=== PATIENT | male | born 1940 | race Caucasian/White ===

== ENCOUNTER 2021-06-28 14:19 | Inpatient (IN) | payer MEDICARE ==
[~2021-06-28] VITALS: Ht 152.4 cm; Wt 83.0 kg
[~2021-06-28 14:19] MED LIST: ATOR-2 MT; BUME1TAB8 MT; CLOP75TA33 MT; FERR-63 PO; MELA5TAB21 PO; MIDO5TAB4 MT; MULT-1204 MT; NITR0.4T49 SL; POTA20TA82 MT
[2021-06-28 15:22] LABS: HEMATOCRIT. 35.2 % (42.0-52.0); HEMOGLOBIN. 11.4 g/dL (14.0-18.0); MEAN CORPUSCULAR HEMOGLOBIN 29.2 pg (28.0-32.0); MEAN CORPUSCULAR VOLUME 90.3 fL (80.0-94.0); MEAN PLATELET VOLUME 10.5 fl (7.4-10.4); PLATELET 69 x1000/uL (130-400); RED BLOOD CELL COUNT 3.89 mill/uL (4.7-6.1); RED CELL DISTRIBUTION WIDTH 19.6 % (11.6-14.6)
[2021-06-28 15:32] LABS: CHLORIDE 98 mEq/L (98-107)
[2021-06-28 15:40] LABS: ETHANOL BLOOD < 10 mg/dL
[2021-06-28] MEDS ORDERED: SODIUM CHLORIDE 0.9% 1,000 ML IV ONE (16:45)
[2021-06-28] MEDS ORDERED: PIPERACILLIN/TAZ 3.375G PREMIX 50 ML IV NR (16:45)
[2021-06-28] MEDS ORDERED: VANCOMYCIN 1G PREMIX 200 ML IV NR (16:45)
[2021-06-28 17:39] LABS: PLATELET ESTIMATE DECREASED
[2021-06-28] MEDS ORDERED: ACETAMINOPHEN 650MG SUPP PR PRN ×2 (20:45)
[2021-06-28] MEDS ORDERED: IPRATROPIUM/ALBUTEROL 0.5-3(2.5)MG/3ML NEB HHN PRN (20:45)
[2021-06-28] MEDS ORDERED: CLONIDINE 0.1MG TABLET PO PRN (20:45)
[2021-06-28] MEDS ORDERED: ONDANSETRON HCL 4MG/2ML INJ IV PRN (20:45)
[2021-06-28] MEDS ORDERED: DOCUSATE SODIUM 100MG CAPSULE PO PRN (20:45)
[2021-06-28] MEDS ORDERED: GUAIFENESIN 200MG/10ML SUGAR FREE UDC PO PRN (20:45)
[2021-06-28] MEDS ORDERED: MAGNESIUM/ALUMINUM HYDROXIDE/SIMETHICONE 30ML UDC PO PRN (20:45)
[2021-06-28] MEDS ORDERED: ENOXAPARIN 40MG/0.4ML SYR SUBCUT SCH (20:45)
[2021-06-28 21:10] VITALS: BP 88/49
[2021-06-28 21:15] LABS: PHOSPHORUS 2.6 mg/dL (2.5-4.9)
[2021-06-28] MEDS: ENOXAPARIN 30MG/0.3ML SYR SUBCUT SCH (21:15)
[2021-06-28] MEDS ORDERED: BUME1TAB8 MT (22:29)
[2021-06-28] MEDS ORDERED: MIDO5TAB4 MT (22:29)
[2021-06-28] MEDS ORDERED: MELA5TAB19 MT (22:29)
[2021-06-28] MEDS ORDERED: CLOP75TA33 MT (22:29)
[2021-06-28] MEDS ORDERED: POTA20TA82 MT (22:29)
[2021-06-28] MEDS ORDERED: ATOR-2 MT (22:29)
[2021-06-28] MEDS ORDERED: LORAZEPAM 1MG TABLET PO PRN (22:30)
[2021-06-28] MEDS ORDERED: AZITHROMYCIN 250 MG TABLET PO SCH (23:00)
[2021-06-28] MEDS: MIDODRINE HCL 5MG TABLET PO SCH (23:17)
[2021-06-28] MEDS: DOXYCYCLINE HYCLATE 100MG CAPSULE PO SCH (23:47)
[2021-06-29] VITALS: BP_SYST 82; BP_SYST 88; BP_DIAS 48; BP_DIAS 49
[2021-06-29] MEDS ORDERED: MIDODRINE HCL 5MG TABLET PO SCH (01:15)
[2021-06-29 04:00] VITALS: BP 85/55
[2021-06-29 06:07] LABS: MEAN CORPUSCULAR HEMOGLOBIN 29.4 pg (28.0-32.0); MEAN CORPUSCULAR VOLUME 90.7 fL (80.0-94.0); PLATELET 55 x1000/uL (130-400); RED BLOOD CELL COUNT 3.75 mill/uL (4.7-6.1); RED CELL DISTRIBUTION WIDTH 19.8 % (11.6-14.6)
[2021-06-29 06:20] LABS: CHLORIDE 99 mEq/L (98-107)
[2021-06-29 06:30] LABS: INR 1.4; PARTIAL THROMBOPLASTIN TIME 35.3 sec (23.4-31.0); PROTHROMBIN TIME 15.1 sec (9.6-11.0)
[2021-06-29 06:33] LABS: CREATINE KINASE 41 IU/L (39-308); HDL CHOLESTEROL 40 mg/dL (40-59); LDL CHOLESTEROL 36 mg/dL (5-100); T4 FREE 1.06 ng/dL (0.76-1.46)
[2021-06-29 08:00] VITALS: BP 97/52
[2021-06-29] MEDS: DIAZEPAM 2 MG TABLET PO SCH ×2 (09:00→21:51)
[2021-06-29] MEDS: DOXYCYCLINE HYCLATE 100MG CAPSULE PO SCH ×2 (09:05→16:40)
[2021-06-29] MEDS: MIDODRINE HCL 5MG TABLET PO SCH ×2 (09:09→16:41)
[2021-06-29] MEDS ORDERED: MIDODRINE HCL 5MG TABLET PO NR (11:45)
[2021-06-29 12:00] VITALS: BP 84/53
[2021-06-29] MEDS ORDERED: MIDODRINE HCL 2.5MG TABLET PO SCH (13:00)
[2021-06-29] MEDS ORDERED: SODIUM CHLORIDE 0.9% 250 ML IV ONE (13:30)
[2021-06-29 14:07] LABS: NUCLEATED RED BLOOD CELLS 4 /100 WBC; PLATELET ESTIMATE DECREASED
[2021-06-29 16:00] VITALS: BP 90/60
[2021-06-29] MEDS: PANTOPRAZOLE SODIUM 40 MG/VIAL IV SCH (16:40)
[2021-06-29] MEDS: CEFEPIME 1,000 MG in DEXTROSE 5% WATER 50 ML IV SCH (16:47)
[2021-06-29 20:00] VITALS: BP 88/64
[2021-06-29] MEDS: ENOXAPARIN 30MG/0.3ML SYR SUBCUT SCH (21:52)
[2021-06-29] MEDS: ATORVASTATIN CALCIUM 40MG TABLET PO SCH (21:52)
[2021-06-30] VITALS: BP 88/42
[2021-06-30 04:00] VITALS: BP 97/48
[2021-06-30 06:11] LABS: HEMATOCRIT. 29.1 % (42.0-52.0); HEMOGLOBIN. 9.5 g/dL (14.0-18.0); MEAN CORPUSCULAR HEMOGLOBIN 29.5 pg (28.0-32.0); MEAN CORPUSCULAR VOLUME 90.3 fL (80.0-94.0); MEAN PLATELET VOLUME 10.2 fl (7.4-10.4); PLATELET 51 x1000/uL (130-400); RED BLOOD CELL COUNT 3.22 mill/uL (4.7-6.1); RED CELL DISTRIBUTION WIDTH 20.6 % (11.6-14.6)
[2021-06-30 07:44] LABS: PLATELET ESTIMATE MARKEDLY DECREASED
[2021-06-30 08:00] VITALS: BP 88/50
[2021-06-30] MEDS: PANTOPRAZOLE SODIUM 40 MG/VIAL IV SCH (08:25)
[2021-06-30] MEDS: DOXYCYCLINE HYCLATE 100MG CAPSULE PO SCH ×2 (08:25→17:45)
[2021-06-30] MEDS: MIDODRINE HCL 5MG TABLET PO SCH ×3 (08:26→17:45)
[2021-06-30] MEDS: DIAZEPAM 2 MG TABLET PO SCH (08:27)
[2021-06-30 12:00] VITALS: BP 103/52
[2021-06-30] MEDS ORDERED: SODIUM CHLORIDE 0.9% 250 ML IV ONE (12:30)
[2021-06-30] MEDS ORDERED: LIDOCAINE HCL 1% 20ML VIAL (Pyxis) INJ ONE (12:39)
[2021-06-30] MEDS ORDERED: SODIUM BICARBONATE 4% (2.4MEQ) 5ML VIAL IV ONE (12:40)
[2021-06-30 16:00] VITALS: BP 91/50
[2021-06-30] MEDS ORDERED: PANTOPRAZOLE SODIUM 40 MG/VIAL IV SCH (17:00)
[2021-06-30] MEDS: CEFEPIME 1,000 MG in DEXTROSE 5% WATER 50 ML IV SCH (17:45)
[2021-06-30 20:00] VITALS: BP 89/45
[2021-06-30] MEDS: ATORVASTATIN CALCIUM 40MG TABLET PO SCH (20:28)
[2021-07-01] VITALS: BP 93/42
[2021-07-01 04:00] VITALS: BP 96/44
[2021-07-01 06:27] LABS: HEMATOCRIT. 29.9 % (42.0-52.0); HEMOGLOBIN. 9.3 g/dL (14.0-18.0); MEAN CORPUSCULAR HEMOGLOBIN 28.7 pg (28.0-32.0); MEAN CORPUSCULAR VOLUME 92.5 fL (80.0-94.0); MEAN PLATELET VOLUME 9.7 fl (7.4-10.4); PLATELET 64 x1000/uL (130-400); RED BLOOD CELL COUNT 3.24 mill/uL (4.7-6.1); RED CELL DISTRIBUTION WIDTH 20.7 % (11.6-14.6)
[2021-07-01 08:00] VITALS: BP 95/44
[2021-07-01] MEDS: DOXYCYCLINE HYCLATE 100MG CAPSULE PO SCH ×2 (08:48→17:37)
[2021-07-01] MEDS: MIDODRINE HCL 5MG TABLET PO SCH ×3 (08:48→17:38)
[2021-07-01] MEDS: PANTOPRAZOLE SODIUM 40 MG/VIAL IV SCH (08:49)
[2021-07-01] MEDS: CARVEDILOL 3.125 MG TABLET PO SCH ×2 (09:00→20:33)
[2021-07-01 10:20] LABS: NUCLEATED RED BLOOD CELLS 1 /100 WBC; PLATELET ESTIMATE DECREASED
[2021-07-01 12:00] VITALS: BP 97/45
[2021-07-01] MEDS ORDERED: SODIUM BICARBONATE 4% (2.4MEQ) 5ML VIAL IV ONE (14:16)
[2021-07-01 16:00] VITALS: BP 83/42
[2021-07-01] MEDS: CEFEPIME 1,000 MG in DEXTROSE 5% WATER 50 ML IV SCH (17:38)
[2021-07-01 20:00] VITALS: BP 82/47
[2021-07-01] MEDS: ATORVASTATIN CALCIUM 40MG TABLET PO SCH (20:33)
[2021-07-01] MEDS ORDERED: MIDODRINE HCL 5MG TABLET PO SCH (21:15)
[2021-07-02] VITALS: BP 85/45
[2021-07-02 04:00] VITALS: BP 87/48
[2021-07-02 08:00] VITALS: BP_SYST 154; BP_SYST 86; BP_DIAS 42; BP_DIAS 78
[2021-07-02 08:19] LABS: HEMATOCRIT. 30.6 % (42.0-52.0); HEMOGLOBIN. 9.5 g/dL (14.0-18.0); MEAN CORPUSCULAR HEMOGLOBIN 29.6 pg (28.0-32.0); MEAN CORPUSCULAR VOLUME 94.8 fL (80.0-94.0); MEAN PLATELET VOLUME 9.6 fl (7.4-10.4); RED BLOOD CELL COUNT 3.23 mill/uL (4.7-6.1); RED CELL DISTRIBUTION WIDTH 20.2 % (11.6-14.6)
[2021-07-02 08:26] LABS: INR 1.4; PROTHROMBIN TIME 14.5 sec (9.6-11.0)
[2021-07-02 08:30] LABS: PLATELET 47 x1000/uL (130-400)
[2021-07-02] MEDS: MIDODRINE HCL 5MG TABLET PO SCH ×3 (08:59→18:27)
[2021-07-02] MEDS: DOXYCYCLINE HYCLATE 100MG CAPSULE PO SCH ×2 (08:59→18:26)
[2021-07-02] MEDS: PANTOPRAZOLE SODIUM 40 MG/VIAL IV SCH (08:59)
[2021-07-02] MEDS: CARVEDILOL 3.125 MG TABLET PO SCH ×2 (09:00→21:41)
[2021-07-02 09:12] LABS: PLATELET ESTIMATE MARKEDLY DECREASED
[2021-07-02 12:00] VITALS: BP 81/37
[2021-07-02] MEDS: LACTULOSE 20G/30ML UDC PO SCH ×3 (12:30→21:41)
[2021-07-02 14:46] LABS: HEPATITIS B SURFACE ANTIGEN NEGATIVE
[2021-07-02 16:00] VITALS: BP_SYST 92; BP_SYST 95; BP_DIAS 44; BP_DIAS 48
[2021-07-02] MEDS: CEFEPIME 1,000 MG in DEXTROSE 5% WATER 50 ML IV SCH (18:25)
[2021-07-02 20:00] VITALS: BP 102/51
[2021-07-02] MEDS: ATORVASTATIN CALCIUM 40MG TABLET PO SCH (21:41)
[2021-07-03] VITALS: BP 92/44
[2021-07-03 04:00] VITALS: BP 91/40
[2021-07-03 08:00] VITALS: BP 94/40
[2021-07-03] MEDS: CARVEDILOL 3.125 MG TABLET PO SCH ×2 (09:00→21:00)
[2021-07-03] MEDS: DOXYCYCLINE HYCLATE 100MG CAPSULE PO SCH ×2 (11:02→18:02)
[2021-07-03] MEDS: MIDODRINE HCL 5MG TABLET PO SCH ×3 (11:02→18:01)
[2021-07-03] MEDS: PANTOPRAZOLE SODIUM 40 MG/VIAL IV SCH (11:03)
[2021-07-03 12:00] VITALS: BP 100/52
[2021-07-03] MEDS ORDERED: IOHEXOL-300 50 ML BOTTLE IV ONE (12:11)
[2021-07-03] MEDS ORDERED: IOPAMIDOL 10 ML VIAL IT ONE (12:12)
[2021-07-03] MEDS ORDERED: IOHEXOL-350 100 ML BOTTLE ONE (12:55)
[2021-07-03 16:00] VITALS: BP 106/53
[2021-07-03] MEDS: CEFEPIME 1,000 MG in DEXTROSE 5% WATER 50 ML IV SCH (18:02)
[2021-07-03 20:00] VITALS: BP 95/55
[2021-07-03] MEDS: ATORVASTATIN CALCIUM 40MG TABLET PO SCH (21:47)
[2021-07-04] VITALS (7 sets, daily range): BP systolic 93–110; BP diastolic 43–58
[2021-07-04] MEDS: CARVEDILOL 3.125 MG TABLET PO SCH ×2 (09:00→20:49)
[2021-07-04] MEDS: MIDODRINE HCL 5MG TABLET PO SCH ×3 (09:03→21:27)
[2021-07-04] MEDS: PANTOPRAZOLE SODIUM 40 MG/VIAL IV SCH (09:03)
[2021-07-04 15:50] LABS: HEMATOCRIT. 29.5 % (42.0-52.0); HEMOGLOBIN. 9.5 g/dL (14.0-18.0); MEAN CORPUSCULAR VOLUME 90.3 fL (80.0-94.0); MEAN PLATELET VOLUME 10.5 fl (7.4-10.4); PLATELET 53 x1000/uL (130-400); RED BLOOD CELL COUNT 3.27 mill/uL (4.7-6.1); RED CELL DISTRIBUTION WIDTH 20.3 % (11.6-14.6)
[2021-07-04 16:07] LABS: CHLORIDE 104 mEq/L (98-107)
[2021-07-04 16:25] LABS: PLATELET ESTIMATE DECREASED
[2021-07-04 16:37] LABS: TOTAL IRON BINDING CAPACITY 335 ug/dL (250-450)
[2021-07-04] MEDS: ATORVASTATIN CALCIUM 40MG TABLET PO SCH (21:27)
== END 2021-07-04 23:08 | DRG 853 ==
LOC: ER 14:19 → EDBEDREQTM 18:09 → EDBEDREQ 18:09 → 8WST 19:08 → EDBEDREQ 19:17 → EDBEDREQTM 19:17 → ENRESERV 19:50
PROVIDERS: ADMIT Family Medicine Adult Medicine; ATTEND Internal Medicine Nephrology
PROC: 5A1D70Z Performance of Urinary Filtration, Intermittent, Less than 6 Hours Per Day (ICD-10-PCS; 2021-06-29)
PROC: 4B02XTZ Measurement of Cardiac Defibrillator, External Approach (ICD-10-PCS; 2021-06-30)
PROC: 0W9G3ZZ Drainage of Peritoneal Cavity, Percutaneous Approach (ICD-10-PCS; 2021-06-30)
PROC: 0JBP0ZZ Excision of Left Lower Leg Subcutaneous Tissue and Fascia, Open Approach (ICD-10-PCS; principal; 2021-07-01)
PROC: 0JBP0ZZ Excision of Left Lower Leg Subcutaneous Tissue and Fascia, Open Approach (ICD-10-PCS; 2021-07-01)
PROC: 5A1D70Z Performance of Urinary Filtration, Intermittent, Less than 6 Hours Per Day (ICD-10-PCS; 2021-07-01)
PROC: 0W993ZZ Drainage of Right Pleural Cavity, Percutaneous Approach (ICD-10-PCS; 2021-07-01)
PROC: 5A1D70Z Performance of Urinary Filtration, Intermittent, Less than 6 Hours Per Day (ICD-10-PCS; 2021-07-03)
PROC: 05HY33Z Insertion of Infusion Device into Upper Vein, Percutaneous Approach (ICD-10-PCS; 2021-07-03)
PROC: B5171ZA Fluoroscopy of Left Subclavian Vein using Low Osmolar Contrast, Guidance (ICD-10-PCS; 2021-07-03)
PROC: B51NZZA Fluoroscopy of Left Upper Extremity Veins, Guidance (ICD-10-PCS; 2021-07-03)
DX: A41.9 Sepsis, unspecified organism (principal); J18.9 Pneumonia, unspecified organism; N18.6 End stage renal disease; I50.23 Acute on chronic systolic (congestive) heart failure; J96.00 Acute respiratory failure, unspecified whether with hypoxia or hypercapnia; I21.4 Non-ST elevation (NSTEMI) myocardial infarction; I13.2 Hypertensive heart and chronic kidney disease with heart failure and with stage 5 chronic kidney disease, or end stage renal disease; R18.8 Other ascites; E87.1 Hypo-osmolality and hyponatremia; E44.0 Moderate protein-calorie malnutrition; I47.2 Ventricular tachycardia; J91.8 Pleural effusion in other conditions classified elsewhere; I95.89 Other hypotension; R65.20 Severe sepsis without septic shock; E11.22 Type 2 diabetes mellitus with diabetic chronic kidney disease; E11.51 Type 2 diabetes mellitus with diabetic peripheral angiopathy without gangrene; E78.00 Pure hypercholesterolemia, unspecified; I25.5 Ischemic cardiomyopathy; K74.60 Unspecified cirrhosis of liver; E78.5 Hyperlipidemia, unspecified; D69.6 Thrombocytopenia, unspecified; D64.9 Anemia, unspecified; I08.0 Rheumatic disorders of both mitral and aortic valves; E11.42 Type 2 diabetes mellitus with diabetic polyneuropathy; R19.7 Diarrhea, unspecified; L89.156 Pressure-induced deep tissue damage of sacral region; R26.9 Unspecified abnormalities of gait and mobility; R53.81 Other malaise; I25.10 Atherosclerotic heart disease of native coronary artery without angina pectoris; F41.9 Anxiety disorder, unspecified; S80.922A Unspecified superficial injury of left lower leg, initial encounter; Z20.822 Contact with and (suspected) exposure to COVID-19; X58.XXXA Exposure to other specified factors, initial encounter; Y93.89 Activity, other specified; Y92.89 Other specified places as the place of occurrence of the external cause; Y99.8 Other external cause status; I25.2 Old myocardial infarction; Z86.16 Personal history of COVID-19; Z79.899 Other long term (current) drug therapy; Z95.810 Presence of automatic (implantable) cardiac defibrillator; Z99.2 Dependence on renal dialysis; Z87.891 Personal history of nicotine dependence; Z82.49 Family history of ischemic heart disease and other diseases of the circulatory system; Z83.3 Family history of diabetes mellitus; Z68.35 Body mass index [BMI] 35.0-35.9, adult; Z79.02 Long term (current) use of antithrombotics/antiplatelets; Z89.422 Acquired absence of other left toe(s)
CPT/HCPCS: 32555; 36415; 36573; 49083; 71045; 72191; 73706; 74176; 80048; 80053; 80061; 80320; 82040; 82140; 82306; 82550; 82607; 82728; 82746; 82962; 83036; 83540; 83550; 83605; 83615; 83735; 83880; 84100; 84134; 84145; 84439; 84443; 84484; 85025; 86705; 86709; 86803; 87340; 87426; 88108; 93005; 93306; 93971; 97162; 97166; 99291; C1725; C1769; C9113; C9803; J0692; J1650; J2543; J3370; J3490; J7060; Q9966; Q9967; G0480

== ENCOUNTER 2021-07-04 23:09 | Inpatient (IN) | payer MEDICARE ==
[~2021-07-04] VITALS: Ht 165.1 cm; Wt 89.8 kg
[2021-07-04 23:09] VITALS: BP 103/62
[~2021-07-04 23:09] MED LIST changes: +MELA5TAB19 MT; +POTA-205 MT; -POTA20TA82 MT
[2021-07-05] MEDS ORDERED: GUAIFENESIN 200MG/10ML SUGAR FREE UDC PO PRN (00:15)
[2021-07-05] MEDS ORDERED: MAGNESIUM/ALUMINUM HYDROXIDE/SIMETHICONE 30ML UDC PO PRN (00:15)
[2021-07-05] MEDS ORDERED: CLONIDINE 0.1MG TABLET PO PRN (00:15)
[2021-07-05] MEDS ORDERED: ACETAMINOPHEN 650MG SUPP PR PRN ×2 (00:15)
[2021-07-05] MEDS ORDERED: ONDANSETRON HCL 4MG/2ML INJ IV PRN (00:15)
[2021-07-05] MEDS: MIDODRINE HCL 2.5MG TABLET PO SCH ×3 (06:55→21:23)
[2021-07-05 08:00] VITALS: BP 113/59
[2021-07-05] MEDS: CARVEDILOL 3.125 MG TABLET PO SCH ×2 (09:00→21:00)
[2021-07-05] MEDS: PANTOPRAZOLE SODIUM 40 MG/VIAL IV SCH (11:39)
[2021-07-05 16:00] VITALS: BP 124/64
[2021-07-05 20:00] VITALS: BP 101/56
[2021-07-05] MEDS: ATORVASTATIN CALCIUM 40MG TABLET PO SCH (21:23)
[2021-07-06] MEDS: MIDODRINE HCL 2.5MG TABLET PO SCH ×3 (05:52→20:59)
[2021-07-06 08:00] VITALS: BP 109/54
[2021-07-06] MEDS ORDERED: SENNOSIDES/DOCUSATE SOD 8.6/50MG TABLET PO PRN (09:15)
[2021-07-06] MEDS: CARVEDILOL 3.125 MG TABLET PO SCH ×2 (09:53→10:03)
[2021-07-06] MEDS: PANTOPRAZOLE SODIUM 40 MG/VIAL IV SCH (09:53)
[2021-07-06] MEDS: LACTULOSE 20G/30ML UDC PO SCH ×3 (12:33→18:27)
[2021-07-06 20:00] VITALS: BP 122/55
[2021-07-06] MEDS: ATORVASTATIN CALCIUM 40MG TABLET PO SCH (20:59)
[2021-07-07] MEDS: IPRATROPIUM/ALBUTEROL 0.5-3(2.5)MG/3ML NEB HHN SCH ×4 (02:44→21:39)
[2021-07-07] MEDS: MIDODRINE HCL 2.5MG TABLET PO SCH ×3 (06:56→20:52)
[2021-07-07 08:00] VITALS: BP 100/51
[2021-07-07] MEDS: PANTOPRAZOLE SODIUM 40 MG/VIAL IV SCH (08:14)
[2021-07-07] MEDS: CARVEDILOL 3.125 MG TABLET PO SCH ×3 (08:16→21:00)
[2021-07-07 09:18] LABS: CHLORIDE 107 mEq/L (98-107)
[2021-07-07 09:29] LABS: HEMATOCRIT. 31.3 % (42.0-52.0); HEMOGLOBIN. 10.1 g/dL (14.0-18.0); MEAN CORPUSCULAR HEMOGLOBIN 29.2 pg (28.0-32.0); MEAN CORPUSCULAR VOLUME 90.1 fL (80.0-94.0); MEAN PLATELET VOLUME 10.4 fl (7.4-10.4); PLATELET 72 x1000/uL (130-400); RED BLOOD CELL COUNT 3.47 mill/uL (4.7-6.1); RED CELL DISTRIBUTION WIDTH 19.9 % (11.6-14.6)
[2021-07-07 20:00] VITALS: BP 100/64
[2021-07-07] MEDS: GABAPENTIN 100MG CAPSULE PO SCH (20:51)
[2021-07-07] MEDS: ATORVASTATIN CALCIUM 40MG TABLET PO SCH (20:51)
[2021-07-07 23:02] LABS: PLATELET ESTIMATE DECREASED
[2021-07-07 23:17] VITALS: BP 100/64
[2021-07-08] MEDS: MIDODRINE HCL 2.5MG TABLET PO SCH ×3 (06:18→20:56)
[2021-07-08] MEDS: IPRATROPIUM/ALBUTEROL 0.5-3(2.5)MG/3ML NEB HHN SCH ×3 (07:11→21:36)
[2021-07-08 08:00] VITALS: BP 95/44
[2021-07-08] MEDS: CARVEDILOL 3.125 MG TABLET PO SCH ×2 (09:00→20:59)
[2021-07-08] MEDS ORDERED: NALOXONE HCL 0.4MG/ML VIAL IV PRN (09:00)
[2021-07-08] MEDS: PANTOPRAZOLE SODIUM 40 MG/VIAL IV SCH (09:15)
[2021-07-08] MEDS: HYDROCODONE/ACETAMINOPHEN 5/325MG TABLET PO PRN (09:18)
[2021-07-08 20:00] VITALS: BP 103/57
[2021-07-08] MEDS: ATORVASTATIN CALCIUM 40MG TABLET PO SCH (20:56)
[2021-07-08] MEDS: GABAPENTIN 100MG CAPSULE PO SCH (20:56)
[2021-07-09] MEDS: IPRATROPIUM/ALBUTEROL 0.5-3(2.5)MG/3ML NEB HHN SCH ×4 (01:25→22:24)
[2021-07-09] MEDS: MIDODRINE HCL 2.5MG TABLET PO SCH ×3 (05:03→21:09)
[2021-07-09 07:06] LABS: HEMATOCRIT. 32.2 % (42.0-52.0); HEMOGLOBIN. 10.2 g/dL (14.0-18.0); MEAN CORPUSCULAR HEMOGLOBIN 28.8 pg (28.0-32.0); MEAN CORPUSCULAR VOLUME 90.7 fL (80.0-94.0); MEAN PLATELET VOLUME 10.2 fl (7.4-10.4); PLATELET 69 x1000/uL (130-400); RED BLOOD CELL COUNT 3.55 mill/uL (4.7-6.1); RED CELL DISTRIBUTION WIDTH 19.7 % (11.6-14.6)
[2021-07-09 08:00] VITALS: BP 104/53
[2021-07-09] MEDS: CARVEDILOL 3.125 MG TABLET PO SCH ×2 (08:45→21:00)
[2021-07-09] MEDS: PANTOPRAZOLE SODIUM 40 MG/VIAL IV SCH (09:55)
[2021-07-09] MEDS: HYDROCODONE/ACETAMINOPHEN 5/325MG TABLET PO PRN (10:52)
[2021-07-09 16:15] LABS: NUCLEATED RED BLOOD CELLS 1 /100 WBC; PLATELET ESTIMATE DECREASED
[2021-07-09 20:00] VITALS: BP 95/45
[2021-07-09] MEDS: ATORVASTATIN CALCIUM 40MG TABLET PO SCH (21:09)
[2021-07-09] MEDS: GABAPENTIN 100MG CAPSULE PO SCH (21:09)
[2021-07-10] MEDS: IPRATROPIUM/ALBUTEROL 0.5-3(2.5)MG/3ML NEB HHN SCH ×4 (02:20→19:51)
[2021-07-10] MEDS: MIDODRINE HCL 2.5MG TABLET PO SCH ×3 (05:55→21:27)
[2021-07-10 08:00] VITALS: BP 90/48
[2021-07-10] MEDS: CARVEDILOL 3.125 MG TABLET PO SCH ×2 (09:00→20:43)
[2021-07-10] MEDS: PANTOPRAZOLE 40MG DR TABLET PO SCH (10:12)
[2021-07-10 20:00] VITALS: BP 97/49
[2021-07-10] MEDS: ATORVASTATIN CALCIUM 40MG TABLET PO SCH (20:42)
[2021-07-10] MEDS: BISACODYL 10MG SUPP PR PRN (20:42)
[2021-07-10] MEDS: GABAPENTIN 100MG CAPSULE PO SCH (20:42)
[2021-07-11] MEDS: IPRATROPIUM/ALBUTEROL 0.5-3(2.5)MG/3ML NEB HHN SCH ×3 (01:23→18:00)
[2021-07-11] MEDS: MIDODRINE HCL 2.5MG TABLET PO SCH ×3 (05:32→22:00)
[2021-07-11] MEDS: IPRATROPIUM/ALBUTEROL 0.5-3(2.5)MG/3ML NEB HHN PRN ×2 (07:28→18:01)
[2021-07-11 08:00] VITALS: BP 101/51
[2021-07-11] MEDS: CARVEDILOL 3.125 MG TABLET PO SCH ×2 (08:46→21:00)
[2021-07-11] MEDS: PANTOPRAZOLE 40MG DR TABLET PO SCH (08:59)
[2021-07-11] MEDS ORDERED: LIDOCAINE HCL 1% 20ML VIAL (Pyxis) INJ INL NR (13:30)
[2021-07-11 20:00] VITALS: BP 107/50
[2021-07-11] MEDS: ATORVASTATIN CALCIUM 40MG TABLET PO SCH (21:00)
[2021-07-11] MEDS: GABAPENTIN 100MG CAPSULE PO SCH (21:00)
[2021-07-11 23:00] VITALS: BP 91/50
[2021-07-12 07:09] LABS: HEMOGLOBIN. 10.9 g/dL (14.0-18.0); MEAN CORPUSCULAR HEMOGLOBIN 28.9 pg (28.0-32.0); MEAN CORPUSCULAR VOLUME 93.1 fL (80.0-94.0); PLATELET 73 x1000/uL (130-400); RED BLOOD CELL COUNT 3.76 mill/uL (4.7-6.1); RED CELL DISTRIBUTION WIDTH 20.1 % (11.6-14.6)
[2021-07-12] MEDS: MIDODRINE HCL 2.5MG TABLET PO SCH ×3 (07:27→22:00)
[2021-07-12] MEDS: IPRATROPIUM/ALBUTEROL 0.5-3(2.5)MG/3ML NEB HHN SCH ×4 (07:31→21:44)
[2021-07-12 07:43] LABS: CHLORIDE 107 mEq/L (98-107)
[2021-07-12 08:00] VITALS: BP 102/54
[2021-07-12] MEDS: CARVEDILOL 3.125 MG TABLET PO SCH ×2 (09:00→21:00)
[2021-07-12] MEDS ORDERED: LIDOCAINE HCL 1% 20ML VIAL (Pyxis) INJ ONE (11:02)
[2021-07-12] MEDS: PANTOPRAZOLE 40MG DR TABLET PO SCH (11:06)
[2021-07-12] MEDS ORDERED: BARIUM SULFATE 176 GM SUSP.RECON ONE (14:27)
[2021-07-12] MEDS ORDERED: ZOLPIDEM TARTRATE 5MG TABLET PO PRN (14:30)
[2021-07-12] MEDS: IPRATROPIUM/ALBUTEROL 0.5-3(2.5)MG/3ML NEB HHN PRN (16:50)
[2021-07-12 20:00] VITALS: BP 104/50
[2021-07-12] MEDS: GABAPENTIN 100MG CAPSULE PO SCH (20:58)
[2021-07-12] MEDS: ATORVASTATIN CALCIUM 40MG TABLET PO SCH (20:58)
[2021-07-12 23:00] LABS: PLATELET ESTIMATE DECREASED
[2021-07-13] MEDS: IPRATROPIUM/ALBUTEROL 0.5-3(2.5)MG/3ML NEB HHN SCH ×3 (01:56→18:00)
[2021-07-13 08:00] VITALS: BP 99/52
[2021-07-13] MEDS: PANTOPRAZOLE 40MG DR TABLET PO SCH (11:07)
[2021-07-13] MEDS: MIDODRINE HCL 2.5MG TABLET PO SCH ×3 (11:08→22:00)
[2021-07-13] MEDS: CARVEDILOL 3.125 MG TABLET PO SCH ×2 (11:10→21:00)
[2021-07-13] MEDS ORDERED: ALPRAZOLAM 0.25 MG TABLET PO NR (13:30)
[2021-07-13 19:30] LABS: INR 1.2; PROTHROMBIN TIME 12.4 sec (9.6-11.0)
[2021-07-13 20:00] VITALS: BP 97/44
[2021-07-13] MEDS: ATORVASTATIN CALCIUM 40MG TABLET PO SCH (21:00)
[2021-07-13] MEDS: GABAPENTIN 100MG CAPSULE PO SCH (21:00)
[2021-07-14] MEDS: IPRATROPIUM/ALBUTEROL 0.5-3(2.5)MG/3ML NEB HHN SCH ×4 (01:55→21:28)
[2021-07-14] MEDS: MIDODRINE HCL 2.5MG TABLET PO SCH ×3 (06:43→21:03)
[2021-07-14 06:50] LABS: HEMOGLOBIN. 9.8 g/dL (14.0-18.0); MEAN CORPUSCULAR HEMOGLOBIN 29.2 pg (28.0-32.0); MEAN CORPUSCULAR VOLUME 89.5 fL (80.0-94.0); PLATELET 55 x1000/uL (130-400); RED BLOOD CELL COUNT 3.35 mill/uL (4.7-6.1); RED CELL DISTRIBUTION WIDTH 19.8 % (11.6-14.6)
[2021-07-14 08:00] VITALS: BP 92/42
[2021-07-14] MEDS: CARVEDILOL 3.125 MG TABLET PO SCH ×2 (08:55→21:00)
[2021-07-14] MEDS: PANTOPRAZOLE 40MG DR TABLET PO SCH (10:12)
[2021-07-14 14:34] LABS: PLATELET ESTIMATE DECREASED
[2021-07-14] MEDS ORDERED: LACTULOSE 20G/30ML UDC PO SCH (15:15)
[2021-07-14 20:00] VITALS: BP 95/43
[2021-07-14] MEDS: GABAPENTIN 100MG CAPSULE PO SCH (21:02)
[2021-07-14] MEDS: ATORVASTATIN CALCIUM 40MG TABLET PO SCH (21:02)
[2021-07-14] MEDS: TRAZODONE HCL 50MG TABLET PO SCH (21:03)
[2021-07-15] MEDS: CALCIUM ACETATE 667MG CAPSULE PO SCH (02:21)
[2021-07-15] MEDS: MIDODRINE HCL 2.5MG TABLET PO SCH ×3 (05:15→21:36)
[2021-07-15 07:31] LABS: HEMOGLOBIN. 9.7 g/dL (14.0-18.0); MEAN CORPUSCULAR VOLUME 89.6 fL (80.0-94.0); PLATELET 53 x1000/uL (130-400); RED BLOOD CELL COUNT 3.35 mill/uL (4.7-6.1); RED CELL DISTRIBUTION WIDTH 19.9 % (11.6-14.6)
[2021-07-15 08:00] VITALS: BP 98/49
[2021-07-15 08:51] LABS: PLATELET ESTIMATE DECREASED
[2021-07-15] MEDS: CARVEDILOL 3.125 MG TABLET PO SCH ×2 (09:00→20:40)
[2021-07-15] MEDS: IPRATROPIUM/ALBUTEROL 0.5-3(2.5)MG/3ML NEB HHN SCH ×3 (09:30→22:00)
[2021-07-15] MEDS ORDERED: ALPRAZOLAM 0.25 MG TABLET PO NR (09:45)
[2021-07-15] MEDS: PANTOPRAZOLE 40MG DR TABLET PO SCH (09:50)
[2021-07-15 13:07] LABS: 25-HYDROXY VITAMIN D3 17 ng/mL (.)
[2021-07-15] MEDS: BISACODYL 10MG SUPP PR PRN (17:27)
[2021-07-15 20:00] VITALS: BP 89/51
[2021-07-15] MEDS ORDERED: NA PHOS,M-B/NA PHOS,DI-BA ENEMA 118ML PR NR (23:15)
[2021-07-15] MEDS: ATORVASTATIN CALCIUM 40MG TABLET PO SCH (23:33)
[2021-07-15] MEDS: GABAPENTIN 100MG CAPSULE PO SCH (23:33)
[2021-07-15] MEDS: TRAZODONE HCL 50MG TABLET PO SCH (23:35)
[2021-07-16] MEDS: CALCIUM ACETATE 667MG CAPSULE PO SCH (03:01)
[2021-07-16] MEDS: MIDODRINE HCL 2.5MG TABLET PO SCH ×3 (07:22→22:06)
[2021-07-16] MEDS: IPRATROPIUM/ALBUTEROL 0.5-3(2.5)MG/3ML NEB HHN SCH ×3 (07:46→19:55)
[2021-07-16 07:50] VITALS: BP 82/38
[2021-07-16 08:15] VITALS: BP 93/56
[2021-07-16] MEDS: CARVEDILOL 3.125 MG TABLET PO SCH (08:40)
[2021-07-16] MEDS ORDERED: ERGOCALCIFEROL 50000UNITS CAPSULE PO SCH (09:00)
[2021-07-16 20:00] VITALS: BP 89/42
[2021-07-16] MEDS: ATORVASTATIN CALCIUM 40MG TABLET PO SCH (22:06)
[2021-07-16] MEDS: TRAZODONE HCL 50MG TABLET PO SCH (22:07)
[2021-07-16] MEDS: GABAPENTIN 100MG CAPSULE PO SCH (22:07)
[2021-07-17] MEDS: IPRATROPIUM/ALBUTEROL 0.5-3(2.5)MG/3ML NEB HHN SCH ×4 (02:18→21:19)
[2021-07-17] MEDS: CALCIUM ACETATE 667MG CAPSULE PO SCH (06:51)
[2021-07-17] MEDS: MIDODRINE HCL 2.5MG TABLET PO SCH (06:52)
[2021-07-17 07:55] LABS: HEMATOCRIT. 30.8 % (42.0-52.0); HEMOGLOBIN. 9.9 g/dL (14.0-18.0); MEAN CORPUSCULAR VOLUME 90.4 fL (80.0-94.0); MEAN PLATELET VOLUME 10.6 fl (7.4-10.4); RED CELL DISTRIBUTION WIDTH 20.6 % (11.6-14.6)
[2021-07-17 08:00] VITALS: BP 90/43
[2021-07-17 08:11] LABS: PLATELET 40 x1000/uL (130-400)
[2021-07-17 10:08] LABS: PLATELET ESTIMATE MARKEDLY DECREASED
[2021-07-17] MEDS: MIDODRINE HCL 5MG TABLET PO SCH ×2 (13:49→21:45)
[2021-07-17 20:00] VITALS: BP 98/38
[2021-07-17] MEDS: ATORVASTATIN CALCIUM 40MG TABLET PO SCH (21:44)
[2021-07-17] MEDS: GABAPENTIN 100MG CAPSULE PO SCH (21:44)
[2021-07-17] MEDS: TRAZODONE HCL 50MG TABLET PO SCH (21:45)
[2021-07-18] MEDS: IPRATROPIUM/ALBUTEROL 0.5-3(2.5)MG/3ML NEB HHN SCH ×4 (03:06→21:41)
[2021-07-18] MEDS: CALCIUM ACETATE 667MG CAPSULE PO SCH (06:25)
[2021-07-18] MEDS: MIDODRINE HCL 5MG TABLET PO SCH ×3 (06:25→21:07)
[2021-07-18 06:57] LABS: HEMATOCRIT. 30.6 % (42.0-52.0); HEMOGLOBIN. 9.7 g/dL (14.0-18.0); MEAN CORPUSCULAR HEMOGLOBIN 28.9 pg (28.0-32.0); MEAN CORPUSCULAR VOLUME 91.1 fL (80.0-94.0); MEAN PLATELET VOLUME 11.8 fl (7.4-10.4); RED BLOOD CELL COUNT 3.36 mill/uL (4.7-6.1); RED CELL DISTRIBUTION WIDTH 20.3 % (11.6-14.6)
[2021-07-18 07:48] LABS: PLATELET 44 x1000/uL (130-400)
[2021-07-18 07:50] VITALS: BP 92/40
[2021-07-18] MEDS ORDERED: CALC667C PO (10:57)
[2021-07-18] MEDS ORDERED: MIDO5TAB4 PO (10:57)
[2021-07-18] MEDS ORDERED: MELA5TAB19 MT (10:57)
[2021-07-18] MEDS ORDERED: LIP40 PO (10:57)
[2021-07-18] MEDS ORDERED: GABA-529 PO (10:57)
[2021-07-18 11:53] LABS: BG BASE EXCESS -3.2 mmol/L (-2.0-2.0); BG DEOXYHEMOGLOBIN 9.5 % (0.0-5.0); BG FRACTION INSPIRED OXYGEN 21; BG HCO3 ACT 23.7 mmol/L (22.0-26.0); BG METHEMOGLOBIN 0.2 % (0.0-1.5); BG OXYGEN SATURATION 90.4 % (92.0-98.5); BG OXYHEMOGLOBIN 89.3 % (94.0-97.0); BG PH 7.285 (7.350-7.450); BG PO2 60.1 mmHg (75.0-100.0); BG SAMPLE SITE RIGHT RADIAL; BG TOTAL HEMOGLOBIN 10.8 g/dL (12.0-18.0); BG VENT MODE ROOM AIR
[2021-07-18] MEDS ORDERED: MIDODRINE HCL 5MG TABLET PO NR (17:07)
[2021-07-18] MEDS: LACTULOSE 20G/30ML UDC PO SCH ×2 (17:26→21:04)
[2021-07-18 20:31] VITALS: BP 80/36
[2021-07-18] MEDS: TRAZODONE HCL 50MG TABLET PO SCH (21:04)
[2021-07-18] MEDS: ATORVASTATIN CALCIUM 40MG TABLET PO SCH (21:04)
[2021-07-18] MEDS: GABAPENTIN 100MG CAPSULE PO SCH (21:05)
[2021-07-18 22:13] LABS: PLATELET ESTIMATE MARKEDLY DECREASED
[2021-07-19] MEDS: IPRATROPIUM/ALBUTEROL 0.5-3(2.5)MG/3ML NEB HHN SCH ×4 (02:26→20:02)
[2021-07-19] MEDS: CALCIUM ACETATE 667MG CAPSULE PO SCH (05:53)
[2021-07-19] MEDS: MIDODRINE HCL 5MG TABLET PO SCH ×4 (05:58→23:14)
[2021-07-19 06:10] VITALS: BP 83/39
[2021-07-19 07:55] VITALS: BP 84/38
[2021-07-19 08:35] LABS: HEMATOCRIT. 31.5 % (42.0-52.0); HEMOGLOBIN. 9.9 g/dL (14.0-18.0); MEAN CORPUSCULAR HEMOGLOBIN 28.9 pg (28.0-32.0); MEAN CORPUSCULAR VOLUME 91.8 fL (80.0-94.0); RED BLOOD CELL COUNT 3.43 mill/uL (4.7-6.1); RED CELL DISTRIBUTION WIDTH 20.6 % (11.6-14.6)
[2021-07-19] MEDS: LACTULOSE 20G/30ML UDC PO SCH ×3 (09:14→17:50)
[2021-07-19] MEDS: POLYETHYLENE GLYCOL 3350 (17GM) 1 DOSE PACK PO SCH (09:14)
[2021-07-19 10:50] LABS: PLATELET ESTIMATE MARKEDLY DECREASED
[2021-07-19 10:52] LABS: PLATELET 42 x1000/uL (130-400)
[2021-07-19 12:20] VITALS: BP_SYST 62; BP_SYST 76; BP_DIAS 29; BP_DIAS 36
[2021-07-19] MEDS ORDERED: SODIUM CHLORIDE 0.9% 250 ML IV SCH (13:30)
[2021-07-19 13:45] VITALS: BP 77/37
[2021-07-19 20:00] VITALS: BP 101/46
[2021-07-19] MEDS: ATORVASTATIN CALCIUM 40MG TABLET PO SCH (20:31)
[2021-07-19] MEDS: BISACODYL 10MG SUPP PR PRN (20:31)
[2021-07-19] MEDS: GABAPENTIN 100MG CAPSULE PO SCH (20:31)
[2021-07-19] MEDS: TRAZODONE HCL 50MG TABLET PO SCH (20:31)
[2021-07-20] MEDS: IPRATROPIUM/ALBUTEROL 0.5-3(2.5)MG/3ML NEB HHN SCH ×3 (01:42→13:33)
[2021-07-20] MEDS: CALCIUM ACETATE 667MG CAPSULE PO SCH (02:19)
[2021-07-20] MEDS: MIDODRINE HCL 5MG TABLET PO SCH ×2 (05:11→12:01)
[2021-07-20 07:01] LABS: HEMATOCRIT. 30.9 % (42.0-52.0); HEMOGLOBIN. 9.8 g/dL (14.0-18.0); MEAN CORPUSCULAR HEMOGLOBIN 29.3 pg (28.0-32.0); MEAN CORPUSCULAR VOLUME 92.2 fL (80.0-94.0); MEAN PLATELET VOLUME 11.2 fl (7.4-10.4); RED BLOOD CELL COUNT 3.35 mill/uL (4.7-6.1); RED CELL DISTRIBUTION WIDTH 20.6 % (11.6-14.6)
[2021-07-20 08:00] VITALS: BP 144/82
[2021-07-20 08:52] LABS: NUCLEATED RED BLOOD CELLS 1 /100 WBC
[2021-07-20 08:53] LABS: PLATELET 40 x1000/uL (130-400); PLATELET ESTIMATE MARKEDLY DECREASED
[2021-07-20] MEDS: POLYETHYLENE GLYCOL 3350 (17GM) 1 DOSE PACK PO SCH (09:00)
[2021-07-20 09:30] VITALS: BP_SYST 61; BP_SYST 64; BP_DIAS 29; BP_DIAS 32
[2021-07-20 11:00] VITALS: BP 70/49
[2021-07-20] MEDS ORDERED: SODIUM CHLORIDE 0.9% 250 ML IV ONE (11:00)
[2021-07-20] MEDS ORDERED: ALBUMIN HUMAN 12.5G/250ML (5%) IV PRN (12:00)
[2021-07-20 14:00] VITALS: BP 78/49
[2021-07-20 14:03] VITALS: BP 91/44
== END 2021-07-20 14:45 | disposition short-term general hospital (02) | DRG 264 ==
PROVIDERS: ADMIT Physical Medicine & Rehabilitation Spinal Cord Injury Medicine; ATTEND Internal Medicine Nephrology
PROC: 02HV33Z Insertion of Infusion Device into Superior Vena Cava, Percutaneous Approach (ICD-10-PCS; principal; 2021-07-04)
PROC: B548ZZA Ultrasonography of Superior Vena Cava, Guidance (ICD-10-PCS; 2021-07-04)
PROC: B5181ZA Fluoroscopy of Superior Vena Cava using Low Osmolar Contrast, Guidance (ICD-10-PCS; 2021-07-04)
PROC: 5A1D70Z Performance of Urinary Filtration, Intermittent, Less than 6 Hours Per Day (ICD-10-PCS; 2021-07-06)
PROC: 5A1D70Z Performance of Urinary Filtration, Intermittent, Less than 6 Hours Per Day (ICD-10-PCS; 2021-07-08)
PROC: 0JBP0ZZ Excision of Left Lower Leg Subcutaneous Tissue and Fascia, Open Approach (ICD-10-PCS; 2021-07-09)
PROC: 0JBP0ZZ Excision of Left Lower Leg Subcutaneous Tissue and Fascia, Open Approach (ICD-10-PCS; 2021-07-09)
PROC: 0JBP0ZZ Excision of Left Lower Leg Subcutaneous Tissue and Fascia, Open Approach (ICD-10-PCS; 2021-07-09)
PROC: 5A1D70Z Performance of Urinary Filtration, Intermittent, Less than 6 Hours Per Day (ICD-10-PCS; 2021-07-11)
PROC: 0JBP0ZZ Excision of Left Lower Leg Subcutaneous Tissue and Fascia, Open Approach (ICD-10-PCS; 2021-07-12)
PROC: 0JBP0ZZ Excision of Left Lower Leg Subcutaneous Tissue and Fascia, Open Approach (ICD-10-PCS; 2021-07-12)
PROC: 0JBP0ZZ Excision of Left Lower Leg Subcutaneous Tissue and Fascia, Open Approach (ICD-10-PCS; 2021-07-12)
PROC: 5A1D70Z Performance of Urinary Filtration, Intermittent, Less than 6 Hours Per Day (ICD-10-PCS; 2021-07-13)
PROC: 0W993ZZ Drainage of Right Pleural Cavity, Percutaneous Approach (ICD-10-PCS; 2021-07-14)
PROC: 5A1D70Z Performance of Urinary Filtration, Intermittent, Less than 6 Hours Per Day (ICD-10-PCS; 2021-07-15)
PROC: 5A1D70Z Performance of Urinary Filtration, Intermittent, Less than 6 Hours Per Day (ICD-10-PCS; 2021-07-17)
PROC: 5A1D70Z Performance of Urinary Filtration, Intermittent, Less than 6 Hours Per Day (ICD-10-PCS; 2021-07-20)
DX: I13.2 Hypertensive heart and chronic kidney disease with heart failure and with stage 5 chronic kidney disease, or end stage renal disease (principal); E43 Unspecified severe protein-calorie malnutrition; I21.4 Non-ST elevation (NSTEMI) myocardial infarction; I50.23 Acute on chronic systolic (congestive) heart failure; J96.01 Acute respiratory failure with hypoxia; R53.2 Functional quadriplegia; N18.6 End stage renal disease; E11.52 Type 2 diabetes mellitus with diabetic peripheral angiopathy with gangrene; G95.20 Unspecified cord compression; R18.8 Other ascites; K76.6 Portal hypertension; L89.156 Pressure-induced deep tissue damage of sacral region; D64.9 Anemia, unspecified; D69.6 Thrombocytopenia, unspecified; E11.22 Type 2 diabetes mellitus with diabetic chronic kidney disease; E78.5 Hyperlipidemia, unspecified; F03.90 Unspecified dementia, unspecified severity, without behavioral disturbance, psychotic disturbance, mood disturbance, and anxiety; F17.210 Nicotine dependence, cigarettes, uncomplicated; F32.A Depression, unspecified; F41.9 Anxiety disorder, unspecified; G62.9 Polyneuropathy, unspecified; I08.0 Rheumatic disorders of both mitral and aortic valves; I25.10 Atherosclerotic heart disease of native coronary artery without angina pectoris; E55.9 Vitamin D deficiency, unspecified; G47.00 Insomnia, unspecified; I25.5 Ischemic cardiomyopathy; N50.89 Other specified disorders of the male genital organs; M48.02 Spinal stenosis, cervical region; M48.061 Spinal stenosis, lumbar region without neurogenic claudication; K74.60 Unspecified cirrhosis of liver; K72.90 Hepatic failure, unspecified without coma; K59.00 Constipation, unspecified; M19.90 Unspecified osteoarthritis, unspecified site; E66.01 Morbid (severe) obesity due to excess calories; R26.89 Other abnormalities of gait and mobility; R53.1 Weakness; R53.81 Other malaise; Z74.09 Other reduced mobility; Z99.2 Dependence on renal dialysis; Z95.810 Presence of automatic (implantable) cardiac defibrillator; I25.2 Old myocardial infarction; Z86.16 Personal history of COVID-19; Z83.3 Family history of diabetes mellitus; Z82.49 Family history of ischemic heart disease and other diseases of the circulatory system; Z79.84 Long term (current) use of oral hypoglycemic drugs; I95.9 Hypotension, unspecified; M79.609 Pain in unspecified limb; Z89.422 Acquired absence of other left toe(s); S81.802A Unspecified open wound, left lower leg, initial encounter
CPT/HCPCS: 32555; 36415; 36573; 36600; 71045; 72131; 72141; 72146; 72148; 76604; 76870; 80048; 80053; 82140; 82306; 82375; 82805; 84145; 85025; 85049; 86038; 87426; 92523; 92610; 93970; 93971; 93976; 94618; 94640; 97110; 97116; 97162; 97166; 97530; 97535; C1725; C9113; J3490